=== PATIENT | male | born 1985 | race Caucasian/White ===

== ENCOUNTER 2017-02-18 08:31 | Emergency (ER) | payer SELFPAY ==
[2017-02-18 08:40] VITALS: BP 135/66
[2017-02-18] MEDS ORDERED: Ketorolac 60 MG/2 ML SDV IM ONE (08:49)
--- NOTE | 2017-02-18 08:54 | EDM.PDOC ---
ED HPI GENERAL MEDICAL PROBLEM - General Chief Complaint: Back Pain or Injury Stated Complaint: BACK PAIN Time Seen by Provider: 02/18/17 08:44 - History of Present Illness INITIAL COMMENTS - FREE TEXT/NARRATIVE: HISTORY AND PHYSICAL: History of present illness: Patient is a 31-year-old male with no stated medical problems who presents with complaints of lower back pain more on the right side that started about one month ago. He says that he does a lot of lifting twisting and moving at work and he noticed the discomfort about a month ago and it has been increasing gradually in intensity. He says he has had 2 prior episodes of this but did not seek care at that time and just work it out on his own. He has been doing stretching and applying heat to the area and using intermittent dosing of ibuprofen. The patient denies any bowel or bladder disturbances and has no systemic complaints of abdominal pain chest pain shortness of breath fevers or chills. Patient denies any neurosensory changes in his legs but he does state that the pain occasionally will shoot down his right leg when he tries to extend at the knee or he is bending over. He says this is typical of his prior episodes as well. He states that there is nothing new about this episode versus prior 2 episodes but that he wants to get some relief of the discomfort. He says that it has been pretty consistent with the discomfort and certain movements do trigger it more than others and he has not been able to get a lot of rest due to the discomfort. Patient denies any direct trauma to the area or falls in the last one month Review of systems: As per history of present illness and below otherwise all systems reviewed and negative. Past medical history: As per history of present illness and as reviewed below otherwise noncontributory. Surgical history: As per history of present illness and as reviewed below otherwise noncontributory. Social history: No reported history of drug or alcohol abuse. Family history: As per history of present illness and as reviewed below otherwise noncontributory. Physical exam: General: Well-developed thin man who is nontoxic and moves easily in the ED without distress HEENT: Atraumatic, normocephalic, negative for conjunctival pallor or scleral icterus, mucous membranes moist, throat clear, neck supple, nontender, trachea midline. Lungs: Clear to auscultation, breath sounds equal bilaterally, chest nontender. Heart: S1S2, regular, negative for clicks, rubs, or JVD. Abdomen: Soft, nondistended, nontender.NABS Pelvis: Stable nontender. Genitourinary: Deferred. Rectal: Deferred. Extremities: Atraumatic, negative for cords or calf pain. Neurovascular unremarkable. Neuro: Awake, alert, oriented. Cranial nerves II through XII unremarkable. Cerebellum unremarkable. Motor and sensory unremarkable throughout. Exam nonfocal. Dorsi and plantar flexion is intact I laterally 5/5 it was with great toe, inversion and eversion of the feet is intact, patellar reflexes are +2/4 bilaterally. Gait is intact in the ED Back: There are no midline step-offs or defects of the thoracic or lumbar spine and there is lumbar paraspinal musculature spasm which is appreciated bilaterally but no CVA tenderness. Diagnostics: [] Therapeutics: Toradol --- patient is driving Impression: Lumbar back pain Definitive disposition and diagnosis as appropriate pending reevaluation and review of above. back Pain Score (Numeric/FACES): 5 - Related Data Allergies Allergy/AdvReac Type Severity Reaction Status Date / Time No Known Allergies Allergy Verified 02/18/17 08:38 Home Meds: Home Meds . [No Known Home Meds] 07/15/15 [History] Past Medical History - Past Health History Medical/Surgical History: Denies Medical/Surgical History Social & Family History - Tobacco Use Smoking Status *Q: Never Smoker - Recreational Drug Use Recreational Drug Use: No ED ROS GENERAL - Review of Systems Review Of Systems: ROS reveals no pertinent complaints other than HPI. ED EXAM, GENERAL - Physical Exam Exam: See Below (See dictation) Course - Vital Signs Last Recorded V/S: Last Vital Signs Temp 35.9 C 02/18/17 08:38 Pulse 62 02/18/17 08:38 Resp 18 02/18/17 08:38 BP 135/66 02/18/17 08:38 Pulse Ox 99 02/18/17 08:38 - Orders/Labs/Meds Orders: Active Orders 24 hr Category Date Time Status Ketorolac [Toradol] Med 02/18/17 08:49 Once 60 mg IM ONETIME ONE Departure - Departure Time of Disposition: 08:52 Disposition: Home, Self-Care 01 Condition: good Clinical Impression: Lumbar back pain Qualifiers: Chronicity: unspecified Back pain laterality: right Sciatica presence: without sciatica Qualified Code(s): M54.5 - Low back pain Forms: ED Department Discharge Additional Instructions: The following information is given to patients seen in the emergency department who are being discharged to home. This information is to outline your options for follow-up care. We provide all patients seen in our emergency department with a follow-up referral. The need for follow-up, as well as the timing and circumstances, are variable depending upon the specifics of your emergency department visit. If you don't have a primary care physician on staff, we will provide you with a referral. We always advise you to contact your personal physician following an emergency department visit to inform them of the circumstance of the visit and for follow-up with them and/or the need for any referrals to a consulting specialist. The emergency department will also refer you to a specialist when appropriate. This referral assures that you have the opportunity for followup care with a specialist. All of these measure are taken in an effort to provide you with optimal care, which includes your followup. Under all circumstances we always encourage you to contact your private physician who remains a resource for coordinating your care. When calling for followup care, please make the office aware that this follow-up is from your recent emergency room visit. If for any reason you are refused follow-up, please contact the [facility] emergency department at and ask to speak to the emergency department charge nurse. [facility] Primary care- Internal Medicine and Family [address] [address] Please discontinue taking tlzx-lgd-[id number] ibuprofen and start the new medications are prescribed today. Please apply ice to areas after you are done working or doing activities and then switch to heat before bed. Continue to do stretching and mobility exercises as you have been. These call and followup with one of our clinic physicians for further evaluation of this care plan as well as further testing and treatment as indicated. Return to ER as needed and as discussed - My Orders Last 24 Hours: My Active Orders 02/18/17 08:49 Ketorolac [Toradol] 60 mg IM ONETIME ONE - Assessment/Plan Last 24 Hours: My Active Orders 02/18/17 08:49 Ketorolac [Toradol] 60 mg IM ONETIME ONE
== END 2017-02-18 09:03 | disposition home or self-care (01) ==
LOC: MW.ED 08:31
DX: M54.5 Low back pain (principal)
CPT/HCPCS: 96372; 99282; J1885; 99283

== ENCOUNTER 2017-10-01 00:51 | Emergency (ER) | payer BC ==
--- NOTE | 2017-10-01 01:22 | EDM.PDOC ---
ED HPI GENERAL MEDICAL PROBLEM - General Chief Complaint: Respiratory Problem Stated Complaint: PERSISTENT COUGH Time Seen by Provider: 10/01/17 01:03 - History of Present Illness INITIAL COMMENTS - FREE TEXT/NARRATIVE: HISTORY AND PHYSICAL: History of present illness: The patient is a 32-year-old male with no stated pulmonary history no medical history that he admits to presents with 2 weeks of a cough productive of phlegm , sinus congestion and pressure with drainage, sore throat, body aches/malaise and subjective fevers. He does not have a local provider and he is only been using rfie-ojh-aynsnpp DayQuil or NyQuil and no other medications specifically directed towards his cough or sinus problem. He's been eating and drinking normally without vomiting or diarrhea and has no abdominal pain no shortness of breath and no chest pain. He did not get his influenza vaccine this year Review of systems: As per history of present illness and below otherwise all systems reviewed and negative. Past medical history: As per history of present illness and as reviewed below otherwise noncontributory. Surgical history: As per history of present illness and as reviewed below otherwise noncontributory. Social history: No reported history of drug or alcohol abuse. Family history: As per history of present illness and as reviewed below otherwise noncontributory. Physical exam: Gen.: Well-developed well-nourished man who speaks clearly without breathlessness but has nasal quality to voice. Vital signs have been reviewed by me HEENT: Atraumatic, normocephalic, pupils reactive, negative for conjunctival pallor or scleral icterus, mucous membranes moist, throat clear of exudates but there is oropharyngeal erythema, uvula is normal, there is some anterior cervical adenopathy without posterior adenopathy or nuchal rigidity,, neck supple, nontender, trachea midline. The turbinates are boggy bilaterally with erythema and clear nasal drainage Lungs: Clear to auscultation, breath sounds equal bilaterally, chest nontender. There is a loose cough appreciated in the ER but there is no work of breathing appreciated and no wheezing or stridor Heart: S1S2, regular rate and rhythm no overt murmurs Abdomen: Soft, nondistended, nontender. NABS Pelvis: Deferred Genitourinary: Deferred. Rectal: Deferred. Extremities: Atraumatic, negative for cords or calf pain. Neurovascular unremarkable. Neuro: Awake, alert, oriented. Cranial nerves II through XII unremarkable. Cerebellum unremarkable. Motor and sensory unremarkable throughout. Exam nonfocal. Diagnostics: Chest x-ray influenza swab rapid strep Therapeutics: spacer and teaching Impression: Persisting cough/bronchitis/pharyngitis/sinusitis Definitive disposition and diagnosis as appropriate pending reevaluation and review of above. - Related Data Allergies Allergy/AdvReac Type Severity Reaction Status Date / Time No Known Allergies Allergy Verified 10/01/17 01:04 Home Meds: Home Meds . [No Known Home Meds] 07/15/15 [History] Past Medical History - Past Health History Medical/Surgical History: Denies Medical/Surgical History - Infectious Disease History Infectious Disease History: Reports: Chicken Pox Social & Family History - Family History Family Medical History: Noncontributory - Tobacco Use Smoking Status *Q: Never Smoker Second Hand Smoke Exposure: No - Caffeine Use Caffeine Use: Reports: Energy Drinks - Recreational Drug Use Recreational Drug Use: No ED ROS GENERAL - Review of Systems Review Of Systems: ROS reveals no pertinent complaints other than HPI. ED EXAM, GENERAL - Physical Exam Exam: See Below (See dictation) Course - Vital Signs Last Recorded V/S: Last Vital Signs Temp 36.3 C 10/01/17 00:56 Pulse 73 10/01/17 00:56 Resp 18 10/01/17 00:56 BP 122/66 10/01/17 00:56 Pulse Ox 96 10/01/17 00:56 - Orders/Labs/Meds Orders: Active Orders 24 hr Category Date Time Status Chest 2V [CR] Stat Exams 10/01/17 01:18 Taken CULTURE STREP A CONFIRMATION [RM] Stat Lab 10/01/17 01:24 Results INFLUENZA A+B AG SCREEN [RM] Stat Lab 10/01/17 01:24 Received STREP SCRN A RAPID W CULT CONF [] Stat Lab 10/01/17 01:24 Results Departure - Departure Time of Disposition: 01:50 Disposition: Home, Self-Care 01 Condition: Good Clinical Impression: Persistent cough Sinusitis Qualifiers: Sinusitis location: unspecified location Chronicity: acute Recurrence: not specified as recurrent Qualified Code(s): J01.90 - Acute sinusitis, unspecified - Discharge Information Referrals: PCP,None [Primary Care Provider] - Forms: ED Department Discharge Additional Instructions: The following information is given to patients seen in the emergency department who are being discharged to home. This information is to outline your options for follow-up care. We provide all patients seen in our emergency department with a follow-up referral. The need for follow-up, as well as the timing and circumstances, are variable depending upon the specifics of your emergency department visit. If you don't have a primary care physician on staff, we will provide you with a referral. We always advise you to contact your personal physician following an emergency department visit to inform them of the circumstance of the visit and for follow-up with them and/or the need for any referrals to a consulting specialist. The emergency department will also refer you to a specialist when appropriate. This referral assures that you have the opportunity for followup care with a specialist. All of these measure are taken in an effort to provide you with optimal care, which includes your followup. Under all circumstances we always encourage you to contact your private physician who remains a resource for coordinating your care. When calling for followup care, please make the office aware that this follow-up is from your recent emergency room visit. If for any reason you are refused follow-up, please contact the [facility] emergency department at and ask to speak to the emergency department charge nurse. [facility] Primary care- Internal Medicine and Family [address] [address] Push hydration and avoid caffeinated products, use Tylenol or ibuprofen for fever and bodyaches. Use qhfw-mto-qfwfgpm Mucinex to help expectorate any phlegm that you have and use obdi-ufd-robivyn Flonase nasal spray to help open up the nasal passages and promote drainage of fluid. Also use bqwv-mpn-oejajvh Josiane/Claritin/Benadryl to help with fluid in the sinuses. Take all medications as prescribed and directed. Please call the clinic tomorrow for follow-up appointment in the next few days to reevaluate this care plan and your symptoms and return to ER as needed and as discussed. Have been giving Augmentin, albuterol inhaler, and Phenergan with codeine the [employer] Meds to treat this sinusitis and bronchitis. - My Orders Last 24 Hours: My Active Orders 10/01/17 01:18 Chest 2V [CR] Stat 10/01/17 01:24 CULTURE STREP A CONFIRMATION [RM] Stat INFLUENZA A+B AG SCREEN [RM] Stat STREP SCRN A RAPID W CULT CONF [RM] Stat - Assessment/Plan Last 24 Hours: My Active Orders 10/01/17 01:18 Chest 2V [CR] Stat 10/01/17 01:24 CULTURE STREP A CONFIRMATION [RM] Stat INFLUENZA A+B AG SCREEN [] Stat STREP SCRN A RAPID W CULT CONF [] Stat
[2017-10-01 02:32] VITALS: BP 117/73
--- NOTE | 2017-10-01 15:14 | CR ---
EXAM DATE: 10/01/17 PATIENT'S AGE: 32 Patient: VIKTORIA LONG Facility: [place], [place] Site . Site : 1985 Study: XRay Chest [id number]/18/2017 1:39:12 AM Ordering Physician: Fartun Santana Final Report: INDICATION: Cough, shortness of breath. TECHNIQUE: Chest radiograph 2 views COMPARISON: None FINDINGS: Cardiovascular and mediastinum: The heart silhouette is normal in size and morphology. The mediastinum is normal in appearance. Lungs and pleural spaces: Both lungs are unremarkable in appearance. No sign of pleural effusion seen. No pneumothorax is identified. Bones and soft tissues: No significant findings. IMPRESSION: 1. No acute cardiopulmonary disease is seen. Dictated by Bunny Kruger MD @ 10/01/2017 1:44:53 AM Dictated by: Bunny Kruger MD @ 10/01/2017 01:44:59 (Electronic Signature) Report Signed by Proxy. [id number]
== END 2017-10-01 02:10 | disposition home or self-care (01) ==
LOC: MW.ED 00:51
DX: J01.90 Acute sinusitis, unspecified (principal)
CPT/HCPCS: 71020; 71020-26; 87081; 87804; 87880; 99283

== ENCOUNTER 2017-11-07 20:56 | Emergency (ER) | payer BC ==
[2017-11-07 21:14] VITALS: BP 128/70
--- NOTE | 2017-11-07 21:40 | EDM.PDOC ---
ED HPI GENERAL MEDICAL PROBLEM - General Chief Complaint: Respiratory Problem Stated Complaint: PT HAS FLU SYMPTOMS Time Seen by Provider: 11/07/17 20:57 Source of Information: Reports: Patient History Limitations: Reports: No Limitations - History of Present Illness INITIAL COMMENTS - FREE TEXT/NARRATIVE: HISTORY AND PHYSICAL: History of present illness: Patient is a 32-year-old male who presents to the emergency room today with complaints of fever and body aches. He states that 2 coworkers have recently been diagnosed with influenza and he is concerned that he may have it as well. He has not taken any lcbk-yjq-hlhdlxz medications to alleviate his symptoms. He denies any abdominal pain, nausea, vomiting or diarrhea. Denies any fever, chills, chest pain or shortness of breath. Has not received the [id number] influenza vaccine. Review of systems: As per history of present illness and below otherwise all systems reviewed and negative. Past medical history: As per history of present illness and as reviewed below otherwise noncontributory. Surgical history: As per history of present illness and as reviewed below otherwise noncontributory. Social history: No reported history of drug or alcohol abuse. Family history: As per history of present illness and as reviewed below otherwise noncontributory. Physical exam: Gen.: Nontoxic-appearing 32-year-old male. Alert and oriented. Appears in no acute distress. HEENT: Atraumatic, normocephalic, pupils reactive, negative for conjunctival pallor or scleral icterus, mucous membranes moist, mild erythema noted in throat otherwise clear without exudate, no lymphadenopathy, neck supple, nontender, trachea midline. Meningeal signs. No drooling or trismus. Lungs: Clear to auscultation, breath sounds equal bilaterally, chest nontender. Heart: S1S2, regular rate and rhythm Abdomen: Soft, nondistended, nontender. Negative for masses or hepatosplenomegaly. Negative for costovertebral tenderness. Pelvis: Stable nontender. Genitourinary: Deferred. Rectal: Deferred. Extremities: Atraumatic, moves all extremities per self, negative for cords or calf pain. Neurovascular unremarkable. Skin: Skin is Dirty from occupational materials, intact, warm, dry. No overt lesions or rashes. Neuro: Awake, alert, oriented. Cranial nerves II through XII unremarkable. Cerebellum unremarkable. Motor and sensory unremarkable throughout. Exam nonfocal. Chest x-ray does not show any infiltrates or pneumonia. Influenza screening is negative. Treat the throat with Augmentin. We reviewed symptomatic care, that he may do at home. Patient voices understanding and is agreeable to plan of care. He denies any further questions at this time. Diagnostics: Influenza, chest x-ray Therapeutics: [] Impression: Pharyngitis Plan: 1. Please take antibiotic as prescribed. Warm salt water gargles 3 times daily. Please get a new toothbrush once you feel like you are improving. 2. Tylenol and/or ibuprofen as needed for pain and fever management. Plenty of fluids to prevent dehydration. Rest. 3. I'll up with her primary caregiver in the next 1-2 days. Return to the ED as needed and as discussed. Definitive disposition and diagnosis as appropriate pending reevaluation and review of above. Onset: Today chest Pain Score (Numeric/FACES): 4 throat Pain Score (Numeric/FACES): 4 - Related Data Allergies Allergy/AdvReac Type Severity Reaction Status Date / Time No Known Allergies Allergy Verified 11/07/17 21:05 Home Meds: Home Meds . [No Known Home Meds] 07/15/15 [History] Past Medical History - Past Health History Medical/Surgical History: Denies Medical/Surgical History - Infectious Disease History Infectious Disease History: Reports: Chicken Pox Social & Family History - Family History Family Medical History: Noncontributory - Tobacco Use Smoking Status *Q: Current Every Day Smoker Years of Tobacco use: 1 Packs/Tins Daily: 1 Second Hand Smoke Exposure: No - Caffeine Use Caffeine Use: Reports: Energy Drinks - Recreational Drug Use Recreational Drug Use: No ED ROS GENERAL - Review of Systems Review Of Systems: ROS reveals no pertinent complaints other than HPI. ED EXAM, GENERAL - Physical Exam Exam: See Below (See dictation) Course - Vital Signs Last Recorded V/S: Last Vital Signs Temp 100.2 F 11/07/17 20:56 Pulse 83 11/07/17 20:56 Resp 18 11/07/17 20:56 BP 128/70 11/07/17 20:56 Pulse Ox 96 11/07/17 20:56 - Orders/Labs/Meds Orders: Active Orders 24 hr Category Date Time Status Chest 2V [CR] Stat Exams 11/07/17 21:16 Taken Departure - Departure Time of Disposition: 21:53 Disposition: Home, Self-Care 01 Clinical Impression: Pharyngitis Qualifiers: Pharyngitis/tonsillitis etiology: unspecified etiology Qualified Code(s): J02.9 - Acute pharyngitis, unspecified - Discharge Information Referrals: PCP,None [Primary Care Provider] - Forms: ED Department Discharge Additional Instructions: My general discharge The following information is given to patients seen in the emergency department who are being discharged to home. This information is to outline your options for follow-up care. We provide all patients seen in our emergency department with a follow-up referral. The need for follow-up, as well as the timing and circumstances, are variable depending upon the specifics of your emergency department visit. If you don't have a primary care physician on staff, we will provide you with a referral. We always advise you to contact your personal physician following an emergency department visit to inform them of the circumstance of the visit and for follow-up with them and/or the need for any referrals to a consulting specialist. The emergency department will also refer you to a specialist when appropriate. This referral assures that you have the opportunity for follow-up care with a specialist. All of these measure are taken in an effort to provide you with optimal care, which includes your follow-up. Under all circumstances we always encourage you to contact your private physician who remains a resource for coordinating your care. When calling for follow-up care, please make the office aware that this follow-up is from your recent emergency room visit. If for any reason you are refused follow-up, please contact the [facility] Emergency Department at and asked to speak to the emergency department charge nurse. [facility] Primary Care [address] [place] [id number] 1. Please take antibiotic as prescribed. Warm salt water gargles 3 times daily. Please get a new toothbrush once you feel like you are improving. 2. Tylenol and/or ibuprofen as needed for pain and fever management. Plenty of fluids to prevent dehydration. Rest. 3. I'll up with her primary caregiver in the next 1-2 days. Return to the ED as needed and as discussed. - My Orders Last 24 Hours: My Active Orders 11/07/17 21:16 Chest 2V [CR] Stat - Assessment/Plan Last 24 Hours: My Active Orders 11/07/17 21:16 Chest 2V [CR] Stat
--- NOTE | 2017-11-08 16:12 | CR ---
EXAM DATE: 11/07/17 PATIENT'S AGE: 32 Patient: VIKTORIA LONG Facility: [place], [place] Site . Site : 1985 Study: XRay Chest [id number]/24/2018 9:28:56 PM Ordering Physician: Doctor Payne Final Report: INDICATION: COUGH, COLD STARTING TODAY. TECHNIQUE: Chest 2 views. COMPARISON: 10/01/17 FINDINGS: Cardiovascular and mediastinum: Heart size and vasculature are normal in caliber and appearance. Mediastinum is within normal limits. Lungs and pleural spaces: Lungs are clear. No sign of infiltrate or mass. No sign of pleural effusion. No pneumothorax. Bones and soft tissues: No significant findings. IMPRESSION: Unremarkable chest. Dictated by: Ron Cruz MD @ 11/07/2017 21:49:54 (Electronic Signature) Report Signed by Proxy. [facility]
== END 2017-11-07 22:16 | disposition home or self-care (01) ==
LOC: MW.ED 20:56
DX: J02.9 Acute pharyngitis, unspecified (principal); F17.210 Nicotine dependence, cigarettes, uncomplicated
CPT/HCPCS: 71046; 71046-26; 87804; 99283

== ENCOUNTER 2018-04-17 05:59 | Emergency (ER) | payer BC ==
--- NOTE | 2018-04-17 06:07 | EDM.PDOC ---
ED HPI GENERAL MEDICAL PROBLEM - General Chief Complaint: Bite:Animal, Insect Stated Complaint: CAT BITE Time Seen by Provider: 04/17/18 06:06 Source of Information: Reports: Patient History Limitations: Reports: No Limitations - History of Present Illness INITIAL COMMENTS - FREE TEXT/NARRATIVE: HISTORY AND PHYSICAL: History of present illness: 32-year-old male sitting emergency department after receiving multiple bites and scratches from a cat proximally 15 minutes before arrival. Patient states that while trying to rescue her From a dog lifting it up onto a platform to get away from the dog when he was scratched multiple times in bilateral hands as well as bit. He does not know the cat specifically but states that he bleeds it was one of his neighbors. States that the cat was reacting in defense and did not attack him unprovoked. He denies any other trauma. He has no known allergies. Takes no medications normally. On exam there is multiple small excoriations as well as puncture wounds on bilateral hands. There are proximally 5 lesions on the right hand one of which being a small puncture wound. All wounds are less than 1 cm in length. On the left hand therefore lesions once again less than 1 cm in length that appeared to be scratches. Review of systems: As per history of present illness and below otherwise all systems reviewed and negative. Past medical history: As per history of present illness and as reviewed below otherwise noncontributory. Surgical history: As per history of present illness and as reviewed below otherwise noncontributory. Social history: No reported history of drug or alcohol abuse. Family history: As per history of present illness and as reviewed below otherwise noncontributory. Physical exam: HEENT: Atraumatic, normocephalic, pupils reactive, negative for conjunctival pallor or scleral icterus, mucous membranes moist, throat clear, neck supple, nontender, trachea midline. Lungs: Clear to auscultation, breath sounds equal bilaterally, chest nontender. Heart: S1S2, regular, negative for clicks, rubs, or JVD. Abdomen: Soft, nondistended, nontender. Negative for masses or hepatosplenomegaly. Negative for costovertebral tenderness. Pelvis: Stable nontender. Genitourinary: Deferred. Rectal: Deferred. Extremities: See above H&P, negative for cords or calf pain. Neurovascular unremarkable. Neuro: Awake, alert, oriented. Cranial nerves II through XII unremarkable. Cerebellum unremarkable. Motor and sensory unremarkable throughout. Exam nonfocal. Diagnostics: [] Therapeutics: Augmentin 875 mg by mouth twice a day 7 days Impression: Cat bite Plan: I did discuss with the patient possible rabies vaccination and treatment. He did believe that the cat was one of his neighbors and was not as concerned about rabies. I did tell him that he has 10 days to change his mind. Most likely this is low probability of rabies secondary that it was a provoked attack as the cat was trying to defend himself and most likely the patient believes that it was his neighbors cat. We did give him a prescription for Augmentin 875 by mouth twice a day 7 days secondary to wound on the hand as well as puncture area. Instructed him to follow-up with primary care provider and return to emergency department if any new or worsening symptoms. Patient was in complete understanding and was discharged in good condition. We did give him 1 dose of antibiotics before leaving the emergency room. Definitive disposition and diagnosis as appropriate pending reevaluation and review of above. bilateral hands Pain Score (Numeric/FACES): 2 - Related Data Allergies Allergy/AdvReac Type Severity Reaction Status Date / Time No Known Allergies Allergy Verified 04/17/18 06:08 Home Meds: Home Meds . [No Known Home Meds] 07/15/15 [History] Past Medical History - Past Health History Medical/Surgical History: Denies Medical/Surgical History - Infectious Disease History Infectious Disease History: Reports: Chicken Pox Social & Family History - Family History Family Medical History: Noncontributory - Caffeine Use Caffeine Use: Reports: Energy Drinks ED ROS GENERAL - Review of Systems Review Of Systems: ROS reveals no pertinent complaints other than HPI. ED EXAM, ANIMAL BITE - Physical Exam Exam: See Below Course - Vital Signs Last Recorded V/S: Last Vital Signs Temp 97 F 04/17/18 06:09 Pulse 67 04/17/18 06:09 Resp 18 04/17/18 06:09 BP 139/93 H 04/17/18 06:09 Pulse Ox 98 04/17/18 06:09 - Orders/Labs/Meds Orders: Active Orders 24 hr Category Date Time Status Amoxicillin/Clavulanate K [Augmentin 875 MG/125 MG] Med 04/17/18 06:21 Once 2 tab PO ONETIME ONE Medication Orders Amoxicillin/Clavulanate Potassium (Augmentin 875 Mg/125 Mg) 2 tab PO ONETIME ONE Stop: 04/17/18 06:22 Meds: Medications Generic Name Dose Route Start Last Admin Trade Name Katherine PRN Reason Stop Dose Admin Amoxicillin/Clavulanate Potassium 2 tab 04/17/18 06:21 Augmentin 875 Mg/125 Mg PO 04/17/18 06:22 ONETIME ONE Departure - Departure Time of Disposition: 06:25 Disposition: Home, Self-Care 01 Condition: Good Clinical Impression: Cat bite of hand Qualifiers: Encounter type: initial encounter Laterality: right Qualified Code(s): S61.451A - Open bite of right hand, initial encounter; W55.01XA - Bitten by cat , initial encounter - Discharge Information Referrals: PCP,None [Primary Care Provider] - Forms: ED Department Discharge Additional Instructions: My general discharge The following information is given to patients seen in the emergency department who are being discharged to home. This information is to outline your options for follow-up care. We provide all patients seen in our emergency department with a follow-up referral. The need for follow-up, as well as the timing and circumstances, are variable depending upon the specifics of your emergency department visit. If you don't have a primary care physician on staff, we will provide you with a referral. We always advise you to contact your personal physician following an emergency department visit to inform them of the circumstance of the visit and for follow-up with them and/or the need for any referrals to a consulting specialist. The emergency department will also refer you to a specialist when appropriate. This referral assures that you have the opportunity for follow-up care with a specialist. All of these measure are taken in an effort to provide you with optimal care, which includes your follow-up. Under all circumstances we always encourage you to contact your private physician who remains a resource for coordinating your care. When calling for follow-up care, please make the office aware that this follow-up is from your recent emergency room visit. If for any reason you are refused follow-up, please contact the [facility] Emergency Department at and asked to speak to the emergency department charge nurse. [facility] [address] [place] [id number] [facility] [address] [place] [id number] Please follow-up with one of the numbers above for a primary care visit. May use ibuprofen and Tylenol for pain and inflammation. Take antibiotics as prescribed. Return to emergency department if any new or worsening symptoms. Watch for signs of infection including but not limited to increased redness, swelling, pain, and purulent drainage. - My Orders Last 24 Hours: My Active Orders 04/17/18 06:21 Amoxicillin/Clavulanate K [Augmentin 875 MG/125 MG] 2 tab PO ONETIME ONE - Assessment/Plan Last 24 Hours: My Active Orders 04/17/18 06:21 Amoxicillin/Clavulanate K [Augmentin 875 MG/125 MG] 2 tab PO ONETIME ONE
[2018-04-17] MEDS ORDERED: Amoxicillin/Clavulanate K 875-125 MG Tab PO ONE (06:21)
[2018-04-17] MEDS ORDERED: Diphtheria,Pertussis(Acell),Tetanus Vaccine 0.5 ML Syringe IM ONE (06:23)
[2018-04-17 06:37] VITALS: BP 128/82
== END 2018-04-17 06:35 | disposition home or self-care (01) ==
LOC: MW.ED 05:59
DX: S61.451A Open bite of right hand, initial encounter (principal); Z23 Encounter for immunization; W55.01XA Bitten by cat, initial encounter
CPT/HCPCS: 90471; 90715; 99282; A9270

== ENCOUNTER 2019-01-13 12:43 | Emergency (ER) | payer BC ==
[2019-01-13] MEDS ORDERED: Ketorolac 60 MG/2 ML SDV IM ONE (13:06)
[2019-01-13 13:12] VITALS: BP 125/78
--- NOTE | 2019-01-13 13:40 | EDM.PDOC ---
ED HPI GENERAL MEDICAL PROBLEM - General Chief Complaint: ENT Problem Stated Complaint: HEADACHE Time Seen by Provider: 01/13/19 12:44 Source of Information: Reports: Patient History Limitations: Reports: No Limitations - History of Present Illness INITIAL COMMENTS - FREE TEXT/NARRATIVE: History of present illness: []Patient developed a right-sided headache proximately 2 hours prior to arrival. Patient has also had sinus pressure for the last 2 weeks. Any fevers, chills, blurry vision, vomiting. Review of systems: As per history of present illness and below otherwise all systems reviewed and negative. Past medical history: As per history of present illness and as reviewed below otherwise noncontributory. Surgical history: As per history of present illness and as reviewed below otherwise noncontributory. Social history: No reported history of drug or alcohol abuse. Family history: As per history of present illness and as reviewed below otherwise noncontributory. Physical exam: General: Well developed, well nourished in NAD HEENT: Atraumatic, normocephalic, pupils reactive, negative for conjunctival pallor or scleral icterus, mucous membranes moist, throat clear, neck supple, no rigidity, nontender, trachea midline. No tenderness to sinus palpation, TMs are clear Lungs: Clear to auscultation, breath sounds equal bilaterally, chest nontender. Heart: S1S2, regular, negative for clicks, rubs, or JVD. Abdomen: NABS, Soft, nondistended, nontender. Negative for masses or hepatosplenomegaly. Negative for costovertebral tenderness. Pelvis: Stable nontender. Genitourinary: Deferred. Rectal: Deferred. Extremities: Atraumatic, negative for cords or calf pain. Neurovascular unremarkable. Neuro: Awake, alert, oriented. Cranial nerves II through XII unremarkable. Cerebellum unremarkable. Motor and sensory unremarkable throughout. Exam nonfocal. Skin:warm and dry Diagnostics: None Therapeutics: Toradol IM with complete relief ED Course: Improved Impression: Migraine headache Prescriptions: None Plan: Follow-up with primary care return if symptoms worsen or change. Definitive disposition and diagnosis as appropriate pending reevaluation and review of above. headache Pain Score (Numeric/FACES): 10 - Related Data Allergies Allergy/AdvReac Type Severity Reaction Status Date / Time No Known Allergies Allergy Verified 01/13/19 13:11 Home Meds: Home Meds . [No Known Home Meds] 01/13/19 [History] Past Medical History - Past Health History Medical/Surgical History: Denies Medical/Surgical History HEENT History: Reports: None Cardiovascular History: Reports: None Respiratory History: Reports: None Gastrointestinal History: Reports: None Genitourinary History: Reports: None Musculoskeletal History: Reports: None Neurological History: Reports: None Psychiatric History: Reports: None Endocrine/Metabolic History: Reports: None Hematologic History: Reports: None Immunologic History: Reports: None Oncologic (Cancer) History: Reports: None Dermatologic History: Reports: None - Infectious Disease History Infectious Disease History: Reports: Chicken Pox - Past Surgical History Head Surgeries/Procedures: Reports: None Social & Family History - Family History Family Medical History: Noncontributory - Tobacco Use Smoking Status *Q: Current Every Day Smoker Years of Tobacco use: 4 Packs/Tins Daily: 1 Used Tobacco, but Quit: Yes Month/Year Tobacco Last Used: 12/2018 - Caffeine Use Caffeine Use: Reports: None - Recreational Drug Use Recreational Drug Use: No ED ROS GENERAL - Review of Systems Review Of Systems: ROS reveals no pertinent complaints other than HPI. - Physical Exam Exam: See Below (See history of present illness) Course - Vital Signs Last Recorded V/S: Last Vital Signs Temp 96.8 F 01/13/19 13:04 Pulse 47 L 01/13/19 13:04 Resp 16 01/13/19 13:04 BP 125/78 01/13/19 13:04 Pulse Ox 98 01/13/19 13:04 - Orders/Labs/Meds Meds: Medications Discontinued Medications Generic Name Dose Route Start Last Admin Trade Name Katherine PRN Reason Stop Dose Admin Ketorolac Tromethamine 60 mg 01/13/19 13:06 01/13/19 13:13 Toradol IM 01/13/19 13:07 60 mg ONETIME ONE Administration Departure - Departure Time of Disposition: 13:39 Disposition: Home, Self-Care 01 Condition: Good Clinical Impression: Migraine headache Qualifiers: Migraine type: unspecified Status migrainosus presence: without status migrainosus Intractability: not intractable Qualified Code(s): G43.909 - Migraine, unspecified, not intractable, without status migrainosus - Discharge Information *PRESCRIPTION DRUG MONITORING PROGRAM REVIEWED*: No *COPY OF PRESCRIPTION DRUG MONITORING REPORT IN PATIENT TOAN: No Instructions: Migraine Headache, [id number] Referrals: PCP,None [Primary Care Provider] - Forms: ED Department Discharge Additional Instructions: The following information is given to patients seen in the emergency department who are being discharged to home. This information is to outline your options for follow-up care. We provide all patients seen in our emergency department with a follow-up referral. The need for follow-up, as well as the timing and circumstances, are variable depending upon the specifics of your emergency department visit. If you don't have a primary care physician on staff, we will provide you with a referral. We always advise you to contact your personal physician following an emergency department visit to inform them of the circumstance of the visit and for follow-up with them and/or the need for any referrals to a consulting specialist. The emergency department will also refer you to a specialist when appropriate. This referral assures that you have the opportunity for follow-up care with a specialist. All of these measure are taken in an effort to provide you with optimal care, which includes your follow-up. Under all circumstances we always encourage you to contact your private physician who remains a resource for coordinating your care. When calling for follow-up care, please make the office aware that this follow-up is from your recent emergency room visit. If for any reason you are refused follow-up, please contact the [facility] Emergency Department at and asked to speak to the emergency department charge nurse. Use [id number] migraine pain reliever, Motrin and/or ice pack, follow up with primary care return if symptoms worsen or change. [facility] [address] [place] [id number]
== END 2019-01-13 13:51 | disposition home or self-care (01) ==
LOC: MW.ED 12:43
DX: G43.909 Migraine, unspecified, not intractable, without status migrainosus (principal); F17.210 Nicotine dependence, cigarettes, uncomplicated
CPT/HCPCS: 96372; 99283; J1885; 99282

== ENCOUNTER 2019-10-11 20:54 | Emergency (ER) | payer BC ==
--- NOTE | 2019-10-11 21:29 | EDM.PDOC ---
ED HPI GENERAL MEDICAL PROBLEM - General Chief Complaint: General Stated Complaint: SICK Time Seen by Provider: 10/11/19 21:08 Source of Information: Reports: Patient History Limitations: Reports: No Limitations - History of Present Illness INITIAL COMMENTS - FREE TEXT/NARRATIVE: Presents reporting a couple day history of cough, nausea, body aches, sore throat, fever, "eyes hurt". The patient did not have a flu shot. Current every day smoker. 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 He was healthy without chronic medical problems. Lungs Pain Score (Numeric/FACES): 8 - Related Data Allergies Allergy/AdvReac Type Severity Reaction Status Date / Time No Known Allergies Allergy Verified 10/11/19 21:04 Home Meds: Home Meds . [No Known Home Meds] 01/13/19 [History] Past Medical History - Past Health History Medical/Surgical History: Denies Medical/Surgical History HEENT History: Reports: None Cardiovascular History: Reports: None Respiratory History: Reports: None Gastrointestinal History: Reports: None Genitourinary History: Reports: None Musculoskeletal History: Reports: None Neurological History: Reports: None Psychiatric History: Reports: None Endocrine/Metabolic History: Reports: None Hematologic History: Reports: None Immunologic History: Reports: None Oncologic (Cancer) History: Reports: None Dermatologic History: Reports: None - Infectious Disease History Infectious Disease History: Reports: Chicken Pox - Past Surgical History Head Surgeries/Procedures: Reports: None Social & Family History - Family History Family Medical History: Noncontributory - Tobacco Use Smoking Status *Q: Current Every Day Smoker Years of Tobacco use: 4 Packs/Tins Daily: 1 - Caffeine Use Caffeine Use: Reports: Coffee, Energy Drinks, Soda - Recreational Drug Use Recreational Drug Use: No ED ROS GENERAL - Review of Systems Review Of Systems: Comprehensive ROS is negative, except as noted in HPI. ED EXAM, GENERAL - Physical Exam Exam: See Below Exam Limited By: No Limitations General Appearance: Alert, No Apparent Distress Ears: Normal External Exam, Normal TMs Nose: Normal Inspection Throat/Mouth: Normal Inspection Head: Atraumatic, Normocephalic Neck: Normal Inspection, Supple, Non-Tender Respiratory/Chest: No Respiratory Distress, Lungs Clear, Normal Breath Sounds Cardiovascular: Normal Peripheral Pulses, Regular Rate, Rhythm, No Murmur Neurological: Alert, Oriented Psychiatric: Normal Affect, Normal Mood Skin Exam: Warm, Dry, Intact, Normal Color, No Rash Lymphatic: No Adenopathy Course - Vital Signs Last Recorded V/S: Last Vital Signs Temp 38.1 C 10/11/19 21:02 Pulse 83 10/11/19 21:02 Resp 18 10/11/19 21:02 BP 119/65 10/11/19 21:02 Pulse Ox 96 10/11/19 21:02 Departure - Departure Time of Disposition: 22:08 Disposition: Home, Self-Care 01 Condition: Good Clinical Impression: Flu syndrome - Discharge Information Referrals: PCP,None [Primary Care Provider] - [facility] [Outside] [facility] [Outside] Forms: ED Department Discharge Additional Instructions: The following information is given to patients seen in the emergency department who are being discharged to home. This information is to outline your options for follow-up care. We provide all patients seen in our emergency department with a follow-up referral. The need for follow-up, as well as the timing and circumstances, are variable depending upon the specifics of your emergency department visit. If you don't have a primary care physician on staff, we will provide you with a referral. We always advise you to contact your personal physician following an emergency department visit to inform them of the circumstance of the visit and for follow-up with them and/or the need for any referrals to a consulting specialist. The emergency department will also refer you to a specialist when appropriate. This referral assures that you have the opportunity for follow-up care with a specialist. All of these measure are taken in an effort to provide you with optimal care, which includes your follow-up. Under all circumstances we always encourage you to contact your private physician who remains a resource for coordinating your care. When calling for follow-up care, please make the office aware that this follow-up is from your recent emergency room visit. If for any reason you are refused follow-up, please contact the [facility] Emergency Department at and asked to speak to the emergency department charge nurse. 1. Plenty of fluids and rest 2. Bupropion 3-4 tabs twice daily 3. Follow Up in primary care Sepsis Event Note - Evaluation Sepsis Screening Result: No Definite Risk - Focused Exam Vital Signs: Vital Signs Temp Pulse Resp BP Pulse Ox 10/11/19 21:02 38.1 C 83 18 119/65 96 Date Exam was Performed: 10/11/19 Time Exam was Performed: 22:08
[2019-10-11 22:14] VITALS: BP 116/53; PULSE 75
== END 2019-10-11 22:18 | disposition home or self-care (01) ==
LOC: MW.ED 20:54
DX: J11.1 Influenza due to unidentified influenza virus with other respiratory manifestations (principal); F17.210 Nicotine dependence, cigarettes, uncomplicated
CPT/HCPCS: 87804; 99283

== ENCOUNTER 2025-07-05 20:45 | Emergency (ER) | payer BC ==
[2025-07-05 20:57] VITALS: BP 115/63
[2025-07-05 21:43] VITALS: PULSE 72
== END 2025-07-05 21:43 | disposition home or self-care (01) ==
LOC: MW.ED 20:45
DX: H10.9 Unspecified conjunctivitis (principal); Z75.3 Unavailability and inaccessibility of health-care facilities
CPT/HCPCS: 99283; A9270

== ENCOUNTER 2025-08-17 17:49 | Emergency (ER) | payer BC ==
[2025-08-17 18:08] VITALS: PULSE 70
[2025-08-17] MEDS: Alum Hydrox/Mag Hydrox/Simeth 15 ML, Lidocaine 2% 5 ML PO ONE (19:26)
[2025-08-17 19:34] VITALS: BP 133/83
== END 2025-08-17 19:33 | disposition home or self-care (01) ==
LOC: MW.ED 17:49
DX: R07.9 Chest pain, unspecified (principal)
CPT/HCPCS: 71046; 93005; 99285; J3490; 93010; 99284; A9270-GY